=== PATIENT | female | born 1990 | race African-American/Black ===

== ENCOUNTER 2020-11-09 10:36 | Emergency (ER) | payer OTHER ==
[~2020-11-09] VITALS: Ht 170.2 cm; Wt 63.0 kg
[2020-11-09 10:40] VITALS: BP 118/76
--- NOTE | 2020-11-09 10:47 | NUR ---
PT AMBULATED TO BED 5 WITH EVEN, STEADY GAIT
--- NOTE | 2020-11-09 10:52 | NUR ---
30 Y/O FEMALE C/O BILATERAL WRISTS & HANDS PAIN & SWELLING X 3 DAYS. DENIES TRAUMA/INJURY. PT STATES SHE HAS NUMBNESS TO FINGERS. FULL ROM OF WRISTS, CAP REFILL <3 SECONDS, RADIAL PULSES +2. PT DENIES PAIN WHEN SHES NOT MOVING HER HANDS BUT RATES PAIN 5/10 WITH MOVEMENT AND DESCRIBES IT THROBBING. PT DENIES N/V. PT TOOK BENEDRYL BUT NOTHING FOR PAIN. PT A/O X4 WITH EVEN AND UNLABORED RESPIRATIONS. PT SITTING IN BED WITH BED IN LOWEST POSITION, BRAKES LOCKED, X1 SIDERAIL UP. PMH: DM TYPE 1- FBS 64 THIS AM. ALLERGIES: AMOXICILLIN AND SEPTRA
--- NOTE | 2020-11-09 11:13 | NUR ---
DR MALIN AT BEDSIDE EXAMINING PATIENT
[2020-11-09 11:38] LABS: BASOPHILS % (AUTO) 0.4 % (0.0-2.0); EOSINOPHILS # (AUTO) 0.1 K/uL (0-0.4); EOSINOPHILS % (AUTO) 2.1 % (0.0-4.0); HEMATOCRIT 36.1 % (36-48); HEMOGLOBIN 11.9 g/dL (12.0-16.0); LYMPHOCYTES # (AUTO) 1.3 K/uL (2.5-16.5); LYMPHOCYTES % (AUTO) 22.6 % (20.5-51.1); MEAN CORPUSCULAR HEMOGLOBIN 30 pg (27-31); MEAN CORPUSCULAR HGB CONC 33 g/dL (33-37); MEAN CORPUSCULAR VOLUME 91.9 fL (80-94); MONOCYTES # (AUTO) 0.6 K/uL (0.8-1.0); NEUTROPHILS # (AUTO) 3.8 K/uL (1.8-7.7); NEUTROPHILS % (AUTO) 63.9 % (42.2-75.2); PLATELET COUNT (AUTO) 540 K/uL (140-450); RED BLOOD CELL COUNT(AUTO) 3.93 MIL/uL (4.20-5.40); RED CELL DISTRIBUTION WIDTH 13.7 % (11.6-13.7); WHITE BLOOD COUNT (AUTO) 5.9 K/uL (4.8-10.8)
[2020-11-09 11:53] LABS: ALBUMIN 3.5 g/dL (3.4-5.0); ANION GAP 8.9 (8-16); CREATININE 0.9 mg/dL (0.6-1.3); POTASSIUM 3.9 mmol/L (3.5-5.1); TOTAL BILIRUBIN 0.3 mg/dL (0.0-1.0)
[2020-11-09] MEDS ORDERED: FURO-572 PO (12:21)
[2020-11-09 12:28] VITALS: BP 114/77
--- NOTE | 2020-11-09 12:28 | NUR ---
Patient discharged with v/s stable. Written and verbal after care instructions given and explained. Patient alert, oriented and verbalized understanding of instructions. Ambulatory with steady gait. All questions addressed prior to discharge. ID band removed. Patient advised to follow up with PMD. Rx of LASIX 20MG given. Patient educated on indication of medication including possible reaction and side effects. Opportunity to ask questions provided and answered.
== END 2020-11-09 12:28 | disposition home or self-care (01) ==
LOC: MED 10:36
DX: R60.0 Localized edema (principal); M79.601 Pain in right arm; M79.602 Pain in left arm; E11.9 Type 2 diabetes mellitus without complications; Z88.1 Allergy status to other antibiotic agents; Z88.2 Allergy status to sulfonamides
CPT/HCPCS: 36415; 80053; 85025; 86140; 99283